=== PATIENT | male | born 1995 | race Caucasian/White ===

== ENCOUNTER 2019-11-20 07:14 | Emergency (ER) | payer MEDICAID ==
[~2019-11-20] VITALS: Ht 167.6 cm; Wt 72.6 kg
--- NOTE | 2019-11-20 07:15 | NUR ---
Patient to ER bed 03 to gown for evaluation. Side rails up.
--- NOTE | 2019-11-20 07:20 | NUR ---
Dr Castro evaluating patient at bedside
[2019-11-20 07:24] VITALS: BP_SYST 129
[2019-11-20] MEDS ORDERED: DIPH-TET-PERTUS Vaccine 0.5 ML VIAL (ADACEL) I.M. ONE (07:30)
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
--- NOTE | 2019-11-20 07:38 | NUR ---
tetnus vaccine administered
--- NOTE | 2019-11-20 07:45 | NUR ---
Patient given written and verbal discharge instructions and verbalizes understanding. ER MD discussed with patient the results and treatment provided. Patient in stable condition. ID arm band removed. Patient educated on pain management and to follow up with PMD. Pain Scale 3/10. Opportunity for questions provided and answered. Medication side effect fact sheet provided.
[2019-11-20 07:50] VITALS: BP_SYST 129
== END 2019-11-20 07:45 | disposition home or self-care (01) ==
LOC: SED 07:14
DX: S01.01XA Laceration without foreign body of scalp, initial encounter (principal); Y00.XXXA Assault by blunt object, initial encounter; Y93.89 Activity, other specified; Y92.89 Other specified places as the place of occurrence of the external cause; Y99.8 Other external cause status
CPT/HCPCS: 90715; 99283